=== PATIENT | male | born 1955 | race Caucasian/White ===

== ENCOUNTER → 2019-03-17 09:53 | Outpatient (CLI) | payer OTHER, SELFPAY ==
--- NOTE | 2019-03-17 10:01 | XR_ITS ---
XR abdomen min 2V HISTORY: ITS.REASON: HEMATURIA,CONSTIPATION ORDERING PHYSICIAN: Murphy Bradford MD PATIENT AGE: 63 years COMPARISON: 05/14/2016 FINDINGS: There are multiple left renal calculi in both upper and lower pole measuring up to 4 mm in the mid and lower pole. A linear calcific density overlies left renal hilum. There is mild amount of retained colonic feces. There is sclerosis of the SI joints anteriorly. IMPRESSION: Left nephrolithiasis. Constipation
== END ==
PROVIDERS: PCP Family Medicine; Visit Provider Family Medicine
DX: R31.0 Gross hematuria (principal); K59.04 Chronic idiopathic constipation; N20.0 Calculus of kidney
CPT/HCPCS: 74019

== ENCOUNTER → 2020-05-09 07:38 | Outpatient (CLI) | payer MEDICARE, SELFPAY ==
--- NOTE | 2020-05-09 07:43 | US_ITS ---
PROCEDURE: US ABD. AORTA SCREENING CLINICAL INDICATION: AAA SCREENING COMPARISON: No exams were available for comparison FINDINGS: No evidence of aortic aneurysm. Proximal common iliacs are unremarkable IMPRESSION: No evidence abdominal aortic aneurysm Dictated by: Akash Maynard MD 05/09/2020 08:50 Electronically signed by Akash Maynard MD in [place] 05/09/2020 08:50
== END ==
PROVIDERS: PCP Family Medicine; Visit Provider Family Medicine
DX: Z13.6 Encounter for screening for cardiovascular disorders (principal)
CPT/HCPCS: 76705

== ENCOUNTER → 2020-05-11 09:31 | Outpatient (CLI) | payer MEDICARE, SELFPAY ==
--- NOTE | 2020-05-11 10:55 | CT_ITS ---
PROCEDURE: CT LUNG SCREENING CLINICAL INDICATION: H/O NICOTINE DEPENDENCE 40 pack year smoking history. Quit 8 years ago. COMPARISON: No exams were available for comparison TECHNIQUE: The exam was performed on a GE Light Speed [address] scanner using 2.90 mGy CTDI. A low dose helical CT CHEST was performed on a multi-detector scanner. All CT scans at the facility use one or more dose reduction, viz: automated exposure control, ma/kV adjustment per patient size (including targeted exams where dose is matched to indication, i.e. head), or iterative reconstruction technique. The LDCT was performed in a facility that meets the criteria for the screening program. Data regarding this exam was submitted to ACR which is an approved registry. The order for this exam indicates that it came as a result of a lung cancer screening counseling shard decision-making visit that included all the elements required of such a visit including smoking cessation. The radiologist interpreting this exam meets the [facility] criteria for the LDCT lung cancer screening program. The exam is reported using the Lung-RADS classification scale and reported to the ACR registry. NOTE: This study was performed for the specific purposes of lung cancer screening and is not an alternative to diagnostic chest CT. RADIATION DOSE: CTDI vol(CT dose Index-volume) = 2.90mG DLP (Dose Length Product) = 116.72 mGcm Lung Rads Category: FINDINGS: Coronary artery calcifications. COPD. Volume loss in the inferior lingula. No suspicious nodules are evident. OTHER FINDINGS: Upper abdominal images do not demonstrate a right kidney. This could be due to absent right kidney from surgery or congenital or pelvic localization. IMPRESSION: Lung rads category 1, negative, please see above for details Recommend annual LDCT Dictated by: Akash Maynard MD 05/16/2020 09:25 Electronically signed by Akash Maynard MD in [place] 05/16/2020 09:25
== END ==
PROVIDERS: PCP Family Medicine; Visit Provider Family Medicine
DX: Z87.891 Personal history of nicotine dependence (principal); Z12.2 Encounter for screening for malignant neoplasm of respiratory organs; R06.00 Dyspnea, unspecified
CPT/HCPCS: 94060

== ENCOUNTER 2021-03-24 11:58 | Emergency (ER) | payer MEDICARE, SELFPAY ==
[2021-03-24 12:00] VITALS: BP 139/72; PULSE 74; RESP 16; TEMP 36.6; O2SAT 96; BMI 27.8
--- NOTE | 2021-03-24 12:15 | HMH.EDGENADL ---
ED Disposition Clinical Impression: Hematuria Qualifiers: Hematuria type: gross Qualified Code(s): R31.0 - Gross hematuria Disposition: Home, Self-Care Condition on Discharge: Good Instructions: DI for Hematuria Additional Instructions: Follow-up with Dr. Baxter, urology, for further evaluation. Call tomorrow to make appointment. Referrals: Murphy Bradford MD [Primary Care Provider] - Nate Baxter MD [Staff Physician] - - Critical Care Critical Care Time: No Attestation: On , the high probability of a clinically significant, sudden or life threatening deterioration of the following system(s) required my full and direct attention, intervention and personal management. The time I documented below is in addition to time spent performing reported procedures but includes the following listed in this critical care notation. Medical Decision Making - Joaquim Inquiry Pt receiving controlled substance: No Vital Signs: 03/24/21 12:00 Temperature 98 F Temperature Source Oral Pulse Rate [Radial] 74 Respiratory Rate 16 Blood Pressure [Right Arm] 139/72 Blood Pressure Mean [Right Arm] 94 Blood Pressure Position [Right Arm] Sitting 02 Sat by Pulse Oximetry 96 Oxygen Delivery Method Room Air - Lab Data Lab Results 03/24/21 12:10: Urine Color Genesis, Urine Appearance Cloudy, Urine pH 5.5, Ur Specific [place] 1.015, Urine Protein 2+, Urine Glucose (UA) Negative, Urine Ketones Negative, Urine Blood 3+, Urine Nitrate Negative, Urine Bilirubin 1+ A, Urine Urobilinogen 1.0, Ur Leukocyte Esterase 1+ A, Urine RBC 50-100, Urine WBC 3-5, Ur Squamous Epith Cells Occasional, Amorphous Sediment 1+, Urine Bacteria None 03/24/21 12:25: WBC 8.4, RBC 5.28, Hgb 16.0, Hct 47.1, MCV 89.3, MCH 30.3, MCHC 33.9, RDW 13.3, Plt Count 348, MPV 8.0, Neut % (Auto) 73.2, Lymph % (Auto) 18.5, [place] % (Auto) 6.2, Eos % (Auto) 1.7, Baso % (Auto) 0.4, Neut # (Auto) 6.2, Lymph # (Auto) 1.6, [place]win # (Auto) 0.5, Eos # (Auto) 0.1, Baso # (Auto) 0.0 03/24/21 12:25: Sodium 140, Potassium 4.3, Chloride 105, Carbon Dioxide 28, Anion Gap 11.3, BUN 18, Creatinine 0.90, Estimated Creat Clear 98, Estimated GFR 84, Est GFR ( Amer) 102, Glucose 95, Calcium 9.8, Total Bilirubin 0.5, AST 28, ALT 24, Alkaline Phosphatase 85, Total Protein 7.7, Albumin 4.8, Globulin 2.9, Albumin/Globulin Ratio 1.7 Result diagrams: 03/24/21 12:25 03/24/21 12:25 Orders (Tests/Meds): ED MEDICATIONS Discontinued Medications Generic Name Dose Route Start Last Admin Trade Name Freq PRN Reason Stop Dose Admin Sodium Chloride 1,000 mls @ 999 mls/hr 03/24/21 12:15 03/24/21 12:39 Sod Chlor 0.9% 1000ml Bag IV 03/24/21 13:15 999 mls/hr .[id number] LAISHA Administration ORDERS Category Date Time Status Urine Culture Stat Micro 03/24/21 12:10 Received - CT Data CT Scan: Abdomen, Pelvis Time Received: 13:[address] Reviewed: Yes: I have viewed the radiologist's interpretation Findings Narrative: PROCEDURE INFORMATION: Exam: CT Abdomen And Pelvis Without Contrast Exam date and time: 03/24/2021 12:37 PM Age: 65 years old Clinical indication: Prior surgery; Surgery date: 6+ months; 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 TECHNIQUE: Imaging protocol: Computed tomography of the abdomen and pelvis without contrast. Radiation optimization: All CT scans at this facility use at least one of these dose optimization techniques: automated exposure control; mA and/or kV adjustment per patient size (includes targeted exams where dose is matched to clinical indication); or iterative reconstruction. COMPARISON: CR (ABD UPRIGHT, ABDOMEN, ABD UPRIGHT) 03/17/2019 10:14 AM FINDINGS: Liver: Normal. No mass. Gallbladder and bile ducts: Tiny gallstone. Pancreas: Normal. No ductal dilation. Spleen: Normal. No splenomegaly. Adrenal glands: Normal. No mass. Kidneys and ureters:
[2021-03-24 12:20] LABS: Microscopic, Urine URINE MICROSCOPIC (MICROSCOPIC)
[2021-03-24 12:22] LABS: Appearance,Urine CLOUDY (Clear); Blood, Urine 3+ (Negative); Color,Urine AMBER (Yellow); Glucose,Urine (UA) Negative (Negative); Ketones,Urine Negative (Negative); Leukocyte Esterase,Urine 1+ (Negative); Nitrate,Urine Negative (Negative); PH,Urine 5.5 (5.0-8.5); Protein,Urine 2+ (Negative); Specific Gravity, Urine 1.015 (1.005-1.030)
[2021-03-24 12:23] LABS: Bilirubin,Urine 1+ (Negative)
[2021-03-24 12:28] LABS: Amorphous Sediment,Urine 1+ /lpf; RBC,Urine 50-100 #/hpf (0-3); Squamous Epithelial Cell,Urine Occasional #/hpf (0-5)
[2021-03-24 12:33] LABS: Basophils % 0.4 % (0.1-2.0); Eosinophils # 0.1 K/mm3 (0.0-0.4); Eosinophils % 1.7 % (0.1-12.0); Hematocrit 47.1 % (42.0-52.0); Lymphocytes # 1.6 K/mm3 (0.7-4.5); Lymphocytes % 18.5 % (10-50); Mean Corpuscular HGB Conc 33.9 g/dL (31.8-35.4); Mean Corpuscular Hemoglobin 30.3 pg (27.0-31.2); Mean Corpuscular Volume 89.3 fl (80-94); Monocytes # 0.5 K/mm3 (0.1-1.0); Monocytes % 6.2 % (1.7-9.3); Neutrophils # 6.2 K/mm3 (1.8-7.8); Neutrophils % 73.2 % (37.0-80.0); Platelet Count 348 K/mm3 (142-424); Red Blood Count 5.28 M/mm3 (4.60-6.20); Red Cell Distribution Width 13.3 % (11.5-17.5); White Blood Count 8.4 K/mm3 (4.8-10.8)
[2021-03-24 12:37] LABS: Chloride 105 mmol/L (98-107); Sodium 140 mmol/L (136-145)
--- NOTE | 2021-03-24 12:37 | CT_ITS ---
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 TECHNIQUE: Imaging protocol: Computed tomography of the abdomen and pelvis without contrast. Radiation optimization: All CT scans at this facility use at least one of these dose optimization techniques: automated exposure control; mA and/or kV adjustment per patient size (includes targeted exams where dose is matched to clinical indication); or iterative reconstruction. COMPARISON: CR (ABD UPRIGHT, ABDOMEN, ABD UPRIGHT) 03/17/2019 10:14 AM FINDINGS: Liver: Normal. No mass. Gallbladder and bile ducts: Tiny gallstone. Pancreas: Normal. No ductal dilation. Spleen: Normal. No splenomegaly. Adrenal glands: Normal. No mass. Kidneys and ureters: Absent right kidney. Multiple left intrarenal calculi. Focal dilatation of the left central collecting system which abruptly tapers at the ureteropelvic junction, possibly representing a chronic UPJ obstruction. Stomach and bowel: Unremarkable. No obstruction. No mucosal thickening. Appendix: The appendix is seen and is normal in appearance. Intraperitoneal space: Unremarkable. No free air. No significant fluid collection. Vasculature: Vascular calcifications are present. Lymph nodes: Unremarkable. No enlarged lymph nodes. Urinary bladder: Unremarkable as visualized. Reproductive: The prostate measures 5.6 x 4.8 cm. Bones/joints: Unremarkable. No acute fracture. Soft tissues: Unremarkable. IMPRESSION: 1. Tiny gallstone. 2. Multiple left intrarenal calculi. Focal dilatation of the left central collecting system which abruptly tapers at the ureteropelvic junction, possibly representing a chronic UPJ obstruction. 3. No definite evidence of acute abdominal or pelvic pathology. Remainder of findings as described above.
[2021-03-24 12:38] LABS: Potassium 4.3 mmoL/L (3.5-5.1)
[2021-03-24 12:40] LABS: Alanine Aminotransferase 24 U/L (12-78); Albumin Level 4.8 g/dl (3.5-5.0); Albumin/Globulin Ratio 1.7 (1.1-1.8); Alkaline Phosphatase 85 U/L (38-126); Anion Gap 11.3 mEq/L (5-15); Aspartate Amino Transferase 28 U/L (17-59); Bilirubin,Total 0.5 mg/dl (0.2-1.3); Blood Urea Nitrogen 18 mg/dl (9-20); Carbon Dioxide 28 mmol/L (22.0-30.0); Creatinine Clearance Estimated 98 mL/min (50-200); Estimated Glomerular Filt Rate 84 ml/min (>60); GFR (African American) 102 ML/MIN (>60); Globulin 2.9 g/dL (1.3-3.2); Total Protein,Serum 7.7 g/dl (6.3-8.2)
[2021-03-24 12:41] LABS: Calcium 9.8 mg/dl (8.4-10.2); Glucose 95 mg/dl (74-100)
[2021-03-24 14:21] VITALS: BP 148/76; PULSE 71; RESP 18; TEMP 36.9; O2SAT 100
== END 2021-03-24 14:22 | disposition home or self-care (01) ==
PROVIDERS: Emergency Provider Emergency Medicine; PCP Family Medicine
DX: R31.0 Gross hematuria (principal); K80.80 Other cholelithiasis without obstruction; N20.0 Calculus of kidney; Z87.442 Personal history of urinary calculi
CPT/HCPCS: 74176; 80053; 81001; 85025; 87086; 96365; 99283

== ENCOUNTER → 2021-04-10 08:54 | Outpatient (CLI) | payer MEDICARE, SELFPAY | PROVIDERS: Visit Provider Urology | DX: R31.9 Hematuria, unspecified (principal); Z01.812 Encounter for preprocedural laboratory examination; Z20.822 Contact with and (suspected) exposure to COVID-19 | CPT/HCPCS: U0003 ==

== ENCOUNTER 2021-04-12 08:23 | Day surgery (SDC) | payer MEDICARE, SELFPAY ==
[2021-04-12 08:43] VITALS: BP 160/81; PULSE 63; RESP 18; TEMP 36.4; O2SAT 98
[2021-04-12 10:25] VITALS: BP 134/76; PULSE 63; RESP 18; TEMP 36.1; O2SAT 96
--- NOTE | 2021-04-12 12:56 | HMH.OPNOTE ---
Date of procedure: 04/12/21 Pre-op Diagnosis:: Intermittent gross hematuria Post-op Diagnosis:: BPH with friable prostatic mucosa Procedure performed:: Flexible cystoscopy Surgeon:: Nate Baxter MD Anesthesia: local Estimated blood loss (mL): 0 Clinical Note:: 65-year-old white male with intermittent gross hematuria. CT scan has shown no evidence of stones, obstruction or masses. Patient was recently placed on finasteride for likely prostatic source of bleeding. Operative findings:: There is no evidence of bladder tumors or mucosal abnormalities. There was some mild trabeculation and prostate enlargement with a large median lobe present as well as friable prostatic mucosa. Operative note:: Patient taken to the cystoscopy suite after informed consent was obtained. He was prepped and draped in the standard surgical fashion and 2% lidocaine placed into the urethra and clamped for 5 minutes. After 5 minutes the clamp was removed and the flexible cystoscope introduced into the urethral meatus and passed to the prostatic urethra where there was noted to be trilobar hyperplasia and some friable mucosa. The prostate did bleed with instrumentation. Scope was passed into the bladder and the bladder examined in a systematic fashion. There was some mild diffuse trabeculation but no cellules, diverticula, bladder tumors or other mucosal abnormalities. The ureteral orifices in their normal anatomical position with clear efflux of urine. Scope was retroflexed showing a large median lobe with friable mucosa. Scope then removed patient tolerated the procedure well there are no complications. We discussed the findings today and he will continue the finasteride and I will add tamsulosin for some lower urinary tract symptoms. I will see him back in 6 weeks in follow-up. Condition: stable Disposition: same day Specimens:: None Complications:: None
== END 2021-04-12 10:30 | disposition home or self-care (01) ==
PROVIDERS: PCP Family Medicine; Visit Provider Urology
DX: N40.1 Benign prostatic hyperplasia with lower urinary tract symptoms (principal); N42.89 Other specified disorders of prostate; Z88.0 Allergy status to penicillin; Z79.899 Other long term (current) drug therapy; E78.5 Hyperlipidemia, unspecified; I10 Essential (primary) hypertension; R31.9 Hematuria, unspecified
CPT/HCPCS: 52000

== ENCOUNTER → 2021-05-03 06:57 | Outpatient (CLI) | payer MEDICARE, SELFPAY ==
--- NOTE | 2021-05-03 07:10 | CT_ITS ---
PROCEDURE: CT LUNG SCREENING CLINICAL INDICATION: H/O NICOTINE DEPENDENCE Former smoker Quit smoking 12 years ago 30 pack year smoking history COMPARISON: CT CT LUNG SCREENING from 05/11/[address] ABDOMEN PELVIS WO CON from 03/24/2021 TECHNIQUE: The exam was performed on a [employer] Light Speed [address] scanner using 2.90 mGy CTDI. A low dose helical CT CHEST was performed on a multi-detector scanner. All CT scans at the facility use one or more dose reduction, viz: automated exposure control, ma/kV adjustment per patient size (including targeted exams where dose is matched to indication, i.e. head), or iterative reconstruction technique. The LDCT was performed in a facility that meets the criteria for the screening program. Data regarding this exam was submitted to ACR which is an approved registry. The order for this exam indicates that it came as a result of a lung cancer screening counseling shard decision-making visit that included all the elements required of such a visit including smoking cessation. The radiologist interpreting this exam meets the CMS criteria for the LDCT lung cancer screening program. The exam is reported using the Lung-RADS classification scale and reported to the ACR registry. NOTE: This study was performed for the specific purposes of lung cancer screening and is not an alternative to diagnostic chest CT. RADIATION DOSE: CTDI vol(CT dose Index-volume) = 2.90mG DLP (Dose Length Product) = 118.55 mGcm FINDINGS: COPD with scattered areas of scarring there is a faint opacity in the right upper lobe inferiorly image 47 series 4 nonspecific at 4 mm. This may be due to small area of scarring. Cannot exclude developing nodule as a nodules not readily apparent on the previous study. New area of atelectasis or fibrotic change in the lingula with persistent volume loss in the inferior aspect of the lingula. There are some small blebs in the left perihilar region. OTHER FINDINGS: Coronary artery calcifications. Nonspecific hypodensity within the left hepatic lobe at 13 mm possibly due to a hepatic cyst or hemangioma not significantly changed. Absent right kidney. IMPRESSION: Lung-RADS Category 3 Probably Benign regarding faint new nodular opacity in the right upper lobe Follow-up: [address] Chest without and with contrast. Dictated by: Akash Maynard MD 05/13/2021 08:49 Akash Maynard MD in [place] 05/13/2021 08:49
== END ==
PROVIDERS: PCP Family Medicine; Visit Provider Family Medicine
DX: Z87.891 Personal history of nicotine dependence (principal); Z12.2 Encounter for screening for malignant neoplasm of respiratory organs
CPT/HCPCS: 71271

== ENCOUNTER → 2021-11-28 09:17 | Outpatient (CLI) | payer MEDICARE, SELFPAY ==
[2021-11-28 11:05] LABS: Blood Urea Nitrogen 16 mg/dl (9-20); Estimated Glomerular Filt Rate 96 ml/min (>60); GFR (African American) 117 ML/MIN (>60)
== END ==
PROVIDERS: PCP Family Medicine; Visit Provider Family Medicine
DX: R91.1 Solitary pulmonary nodule (principal); I10 Essential (primary) hypertension
CPT/HCPCS: 36415; 82565; 84520

== ENCOUNTER → 2021-12-03 10:19 | Outpatient (CLI) | payer MEDICARE, SELFPAY ==
--- NOTE | 2021-12-03 10:23 | CT_ITS ---
FINAL REPORT TECHNIQUE: Axial images through the chest were performed by computed tomography before and after the administration of IV contrast. This study was performed with techniques to keep radiation doses as low as reasonably achievable, (ALARA). Individualized dose reduction techniques using automated exposure control or adjustment of mA and/or kV according to the patient's size were employed. CLINICAL HISTORY: LUNG NODULE ,6 MONTH F/U PRIOR 05-03-21 COMPARISON: May 03, 2021 FINDINGS: There is no axillary adenopathy. There is no hilar or mediastinal adenopathy. The heart size is normal. There is no pericardial or pleural effusion. Limited images of the upper abdomen demonstrate probable gallstones in the gallbladder. There is a probable small cyst in the left liver dome which is stable. No suspicious infiltrate or nodule identified. There is atelectasis or scarring in the lingula. There is mild emphysema. There is mild scarring. IMPRESSION: No suspicious pulmonary infiltrates or nodules identified. Reviewed, Interpreted and Dictated by Keith Tay III, MD Transcribed by Paty Giles Authenticated by Keith Tay III, MD on 12/03/2021 02:35:21 PM [facility]
== END ==
PROVIDERS: PCP Family Medicine; Visit Provider Family Medicine
DX: R91.1 Solitary pulmonary nodule (principal); Z09 Encounter for follow-up examination after completed treatment for conditions other than malignant neoplasm
CPT/HCPCS: 71270; Q9967

== ENCOUNTER 2023-02-15 09:09 | Emergency (ER) | payer MEDICARE, SELFPAY ==
[2023-02-15 09:09] VITALS: BP 155/92; PULSE 83; RESP 16; TEMP 36.6; O2SAT 97; BMI 27.6
--- NOTE | 2023-02-15 09:20 | CT_ITS ---
PROCEDURE INFORMATION: Exam: CT Abdomen And Pelvis Without Contrast Exam date and time: 02/15/2023 9:45 AM Age: 67 years old Clinical indication: Abdominal pain; Localized; Left lower quadrant (llq); Patient HX: Llq pain with vomiting; Additional info: Left abd pain TECHNIQUE: Imaging protocol: Computed tomography of the abdomen and pelvis without contrast. Radiation optimization: All CT scans at this facility use at least one of these dose optimization techniques: automated exposure control; mA and/or kV adjustment per patient size (includes targeted exams where dose is matched to clinical indication); or iterative reconstruction. REPORTING DATA: Count of CT and Cardiac NM exams in prior 12 months: This patient has received 0 known CTs and 0 known cardiac nuclear medicine studies in the 12 months prior to the current study. COMPARISON: CT ABDOMEN PELVIS WO CON 03/24/2021 12:50 PM FINDINGS: Detailed evaluation of the abdominal and pelvic viscera is somewhat limited in the absence of intravenous contrast. Lungs: Emphysematous change and lingular airspace disease. Liver: Fatty infiltration of the liver and stable nodular hypodensities, including an 11 mm left lobe cyst. Gallbladder and bile ducts: Cholelithiasis. Pancreas: No pancreatic mass or ductal dilatation. Spleen: No splenomegaly. Adrenal glands: Unremarkable adrenals. Kidneys and ureters: Absence of the right kidney. Marked left hydronephrosis with abrupt change in caliber at the level of the UPJ suggesting underlying UPJ stenosis. Multiple left-sided urolithiasis, including a 15 mm calculus in the dilated left extrarenal pelvis. Prominent infiltration of left perinephric fat. Stomach and bowel: Questionable wall thickening in the nondistended stomach. Prominent stool, in a pattern suggesting constipation. Diverticula, without pericolonic inflammation. Appendix: No acute appendicitis. Intraperitoneal space: No significant free fluid. Vasculature: Prominent vascular calcification. No abdominal aortic aneurysm. Lymph nodes: Subcentimeter lymph nodes. Urinary bladder: Mild wall thickening in the decompressed bladder. Reproductive: Enlarged prostate producing extrinsic compression of the bladder base. Bones/joints: Degenerative change and disc bulging. Soft tissues: Small fat containing umbilical hernia. IMPRESSION: 1. Marked left hydronephrosis with abrupt change in caliber at the level of the UPJ suggesting underlying UPJ stenosis. 2. Multiple left-sided urolithiasis, including a 15 mm calculus in the dilated left extrarenal pelvis. Prominent infiltration of left perinephric fat. 3. Additional findings as described above.
--- NOTE | 2023-02-15 09:22 | HMH.EDGENADL ---
Discharge Plan Disposition Patient Disposition: Xfer Other Condition: Fair Prescriptions Prescriptions: No Action atorvastatin 40 mg tablet 40 mg PO DAILY amlodipine 5 mg tablet 5 mg PO DAILY finasteride 5 mg tablet 5 mg PO DAILY Qty: 90 0RF tamsulosin 0.4 mg capsule 0.4 mg PO DAILY Qty: 90 0RF finasteride 5 mg tablet 5 mg PO DAILY Qty: 90 3RF tamsulosin 0.4 mg capsule 0.4 mg PO DAILY Qty: 90 3RF Referrals Follow up/Referrals: Gaby Pino MD [Primary Care Provider] - See instructions Activity Restrictions/Add. Instructions Additional Instructions/Restrictions: Acute kidney injury Clinical Impressions Clinical Impression: Hematuria Stand Alone Forms Stand Alone Forms: Transfer Record - ED Discharge ED Provider: [facility] Adult HPI General Chief complaint: PAIN Stated complaint: Vomiting, no appetite, groin pain Time Seen by Provider: 02/15/23 09:12 History of Present Illness HPI narrative: Patient presents with left groin pain and some vomiting that began yesterday. He presently describes the pain as a 3 and according to his is worse with positional changes. He does have prior history of right nephrectomy. He denies any fever. He states he vomited once last night and again once this morning. He has had intermittent hematuria for the past few years for which she sees a urologist. Related Data Home Medications Medication Instructions Recorded Confirmed amlodipine 5 mg tablet 5 mg PO DAILY BP 03/26/21 05/12/22 atorvastatin 40 mg tablet 40 mg PO DAILY Cholesterol 03/26/21 05/12/22 Previous Rx's Medication Instructions Recorded finasteride 5 mg tablet 5 mg PO DAILY PROSTATE #90 tabs 03/28/22 tamsulosin 0.4 mg capsule 0.4 mg PO DAILY #90 caps 03/28/22 finasteride 5 mg tablet 5 mg PO DAILY #90 tabs 06/26/22 tamsulosin 0.4 mg capsule 0.4 mg PO DAILY #90 caps 06/26/22 Allergies Allergy/AdvReac Type Severity Reaction Status Date / Time Penicillins Allergy Mild SWELLING Verified 02/15/23 09:[address] [facility] Disclaimer: The information contained in this section may have been updated after the patient was seen, as this information can be updated by other users. Social History Smoking Status: Former smoker pack-years: 30 second hand exposure: No alcohol intake: never substance use type: denies use current occupational status: retired Travel in the last 8 weeks: None household members: spouse housing: house caffeine: Yes ROS Obtained: Yes All systems reviewed & no additional complaints except as documented Physical Exam General General appearance: alert and in no apparent distress Head Head exam: atraumatic, normocephalic and normal inspection Eye Eye exam: Present normal appearance, PERRL and EOMI ENT ENT exam: Present normal exam, normal oropharynx, mucous membranes moist, TM's normal bilaterally and normal external ear exam Neck Neck exam: Present normal inspection, full ROM and trachea midline; Absent meningismus or lymphadenopathy Chest Chest inspection: Present normal inspection and symmetric chest wall rise; Absent tenderness Respiratory Respiratory exam: Present normal lung sounds bilaterally; Absent respiratory distress Cardiovascular Cardiovascular exam: Present regular rate and normal rhythm; Absent JVD Abdominal Exam Abdominal exam: Present soft and normal bowel sounds; Absent distention, tenderness or guarding Extremities Exam Extremities exam: Present normal inspection, full ROM and normal capillary refill; Absent calf tenderness Back Exam Back exam: Present normal inspection; Absent tenderness Neurological Exam Neurological exam: Present alert and oriented X3 Psychiatric Psychiatric exam: Present normal affect and normal mood Skin Skin exam: Present warm, dry, intact and normal color Lymphatic Lymphatic Findings: no adenopathy Medical Decision Ambrosio
[2023-02-15 09:40] LABS: Microscopic, Urine URINE MICROSCOPIC (MICROSCOPIC)
[2023-02-15 09:44] LABS: Basophils % 0.2 % (0.1-2.0); Eosinophils # 0.2 K/mm3 (0.0-0.4); Eosinophils % 1.1 % (0.1-12.0); Hemoglobin 15.7 g/dL (14.1-18.0); Lymphocytes # 1.3 K/mm3 (0.7-4.5); Lymphocytes % 7.3 % (10-50); Mean Corpuscular HGB Conc 32.8 g/dL (31.8-35.4); Mean Corpuscular Hemoglobin 29.5 pg (27.0-31.2); Monocytes # 1.6 K/mm3 (0.1-1.0); Neutrophils # 14.5 K/mm3 (1.8-7.8); Neutrophils % 82.5 % (37.0-80.0); Platelet Count 355 K/mm3 (142-424); Red Blood Count 5.33 M/mm3 (4.60-6.20); Red Cell Distribution Width 12.9 % (11.5-17.5); White Blood Count 17.5 K/mm3 (4.8-10.8)
[2023-02-15 09:51] LABS: Appearance,Urine CLEAR (Clear); Bilirubin,Urine Negative (Negative); Blood, Urine 3+ (Negative); Color,Urine YELLOW (Yellow); Glucose,Urine (UA) Negative (Negative); Ketones,Urine TRACE (Negative); Leukocyte Esterase,Urine TRACE (Negative); Nitrate,Urine Negative (Negative); Protein,Urine 1+ (Negative); Specific Gravity, Urine 1.015 (1.005-1.030); Urobilinogen,Urine 0.2 EU/dl (0.2)
[2023-02-15 09:52] LABS: Chloride 102 mmol/L (98-107); MANUAL DIFFERENTIAL MANUAL DIFFERENTIAL (MANUAL DIFF); Potassium 4.4 mmoL/L (3.5-5.1); Sodium 138 mmol/L (136-145)
[2023-02-15 09:54] LABS: Alanine Aminotransferase 29 U/L (12-78); Blood Urea Nitrogen 30 mg/dl (9-20); Creatinine Clearance Estimated 42 mL/min (50-200); Estimated Glomerular Filt Rate 28 ml/min (>60); GFR (African American) 34 ML/MIN (>60)
[2023-02-15 09:55] LABS: Albumin Level 4.2 g/dl (3.5-5.0); Albumin/Globulin Ratio 1.4 (1.1-1.8); Alkaline Phosphatase 84 U/L (38-126); Anion Gap 13.4 mEq/L (5-15); Aspartate Amino Transferase 44 U/L (17-59); Bilirubin,Total 0.5 mg/dl (0.2-1.3); Calcium 9.9 mg/dl (8.4-10.2); Carbon Dioxide 27 mmol/L (22.0-30.0); Globulin 2.9 g/dL (1.3-3.2); Glucose 112 mg/dl (74-100); Lipase 55 U/L (23-300); Total Protein,Serum 7.1 g/dl (6.3-8.2)
[2023-02-15 10:19] LABS: Lymphocytes % 9 % (10-50); Monocytes % 11 % (2-9); Neutrophils % 80 % (42-76); Platelet Estimate Normal; RBC Morphology Normal; Total Cells Counted 100
[2023-02-15 10:25] LABS: Bacteria,Urine Trace /lpf; RBC,Urine 50-100 #/hpf (0-3); Squamous Epithelial Cell,Urine Occasional #/hpf (0-5)
[2023-02-15 10:31] VITALS: BP 175/90; PULSE 70; O2SAT 98
--- NOTE | 2023-02-15 10:34 | PC.NURSE ---
placed call to [facility] for dr phillips for consult
--- NOTE | 2023-02-15 10:48 | PC.NURSE ---
speaking will Ferrera for urology
--- NOTE | 2023-02-15 10:49 | PC.NURSE ---
rounded on pt states hes okay didnt need anything at this time, at bs
[2023-02-15 11:00] VITALS: BP 183/93; PULSE 68; O2SAT 97
--- NOTE | 2023-02-15 11:03 | PC.NURSE ---
speaking with Dr Hinton hospitalist at [facility]
--- NOTE | 2023-02-15 11:08 | PC.NURSE ---
JAVAD MAHAN spoke to dr. Hinton at [facility]. the patient is accepted but we are awaiting for bed placement. [email or web address] coordinator will call back with bed availability.
--- NOTE | 2023-02-15 11:25 | PC.NURSE ---
attemted to angelica report to [facility]. States to call back in 10 minutes.
[2023-02-15 11:30] VITALS: BP 185/88; PULSE 68; O2SAT 98
[2023-02-15 11:56] VITALS: BP 185/88; PULSE 84; RESP 16; TEMP 36.7
== END 2023-02-15 11:58 | disposition other institution (70) ==
PROVIDERS: Emergency Provider Emergency Medicine; PCP Family Medicine
DX: N17.9 Acute kidney failure, unspecified (principal); R31.9 Hematuria, unspecified; Z87.891 Personal history of nicotine dependence
CPT/HCPCS: 74176; 80053; 81001; 83690; 85007; 85025; 96360; 99285

== ENCOUNTER 2024-01-22 07:36 | Outpatient (CLI) | payer MEDICARE, SELFPAY ==
--- NOTE | 2024-01-22 07:39 | CT_ITS ---
FINAL REPORT TECHNIQUE: Thin section axial images were obtained from the lung apices to the upper abdomen by computed tomography. Reformatted images were obtained and reviewed. This study was performed with techniques to keep radiation doses al low as reasonably achievable (ALARA). Individualized dose reduction techniques using automated exposure control or adjustment of mA and/or kV according to the patient's size were employed. CLINICAL HISTORY: H/O TOBACCO USE quit smoking 10 yrs ago, former smoker for 30 yrs 1 pack per day. 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 COMPARISON: 12/03/2021 FINDINGS: CHEST CT LOW DOSE 66-year-old male, quit smoking 10 years ago, [id number] history. CTDI vol (mGy): 2.9 DLP (mGy-cm): 116.98 There is no axillary adenopathy. There is no mediastinal or hilar mass or adenopathy. The heart is normal in size. There is no pericardial or pleural effusion. There is mild emphysema and mild pulmonary scarring. Lung window images demonstrate no suspicious infiltrate or nodule. Compared to the prior examination of 2021 there has been partial improvement in the lingular scar or atelectasis. Limited images of the upper abdomen are unremarkable. IMPRESSION: Lung-RADS category 1. Recommend 12 month follow up low dose chest CT. Reviewed, Interpreted and Dictated by Keith Tay III, MD Transcribed by Aleisha Ku Authenticated and [facility]
== END 2024-01-22 23:59 ==
LOC: RAD 07:37
PROVIDERS: PCP Nurse Practitioner; Visit Provider Nurse Practitioner
DX: Z87.891 Personal history of nicotine dependence (principal); Z12.2 Encounter for screening for malignant neoplasm of respiratory organs
CPT/HCPCS: 71271